=== PATIENT | male | born 1960 | race Caucasian/White ===

== ENCOUNTER 2018-02-10 08:25 | Observation (INO) | payer OTHER, SELFPAY ==
[2018-02-10 09:50] LABS: #Lymphocytes 0.7 thou/uL (1.20-3.40); #Monocytes 0.8 thou/uL (0.11-0.59); #Neutrophils 9.2 thou/uL (1.40-6.50); %Eosinophils 0.3 % (0.0-10.0); %Lymphocytes 6.2 % (21.0-51.0); %Monocytes 7.4 % (0.0-10.0); Hemoglobin 11.4 g/dL (14.0-18.0); Mean Corpuscular HGB CONC 32.2 g/dL (32.0-36.0); Mean Corpuscular Hemoglobin 27.5 pg (27.0-31.0); Mean Corpuscular Volume 85.4 fL (78.0-98.0); Mean Platelet Volume 7.3 fL (7.4-10.4); Platelet Count 326 thou/uL (130-400); Red Blood Cell (RBC) Count 4.13 mill/uL (4.70-6.10); White Blood Cell (WBC) Count 10.6 thou/uL (4.8-10.8)
[2018-02-10] MEDS ORDERED: Ketorolac Tromethamine 30 MG/ML VIAL ONE ×2 (09:50→16:03)
[2018-02-10] MEDS ORDERED: Morphine 4 MG/ML VIAL ONE ×2 (09:50→10:21)
[2018-02-10] MEDS ORDERED: Ondansetron PF 4 MG/2 ML Vial ONE ×2 (09:50→16:03)
--- NOTE | 2018-02-10 09:59 | CT ---
NONCONTRAST CT ABDOMEN AND PELVIS: Date: 02-10-18 History: Right flank pain. Comparison: 05-10-13 FINDINGS: There is mild atelectasis at the left lung base. Lung bases are otherwise clear. The spleen is mildly enlarged measuring 15 cm in craniocaudal dimensions. The liver, pancreas, bilateral adrenal glands, kidneys and incompletely distended urinary bladder dem onstrate a grossly normal nonenhanced CT appearance. No renal or ureteral calculi are seen bilaterall y. The appendix is dilated, measuring up to 10 mm and there is suggestion of minimal periappendiceal inf lammatory stranding. The appendix is also more dilated and prominent in appearance compared to a stud y in 2014. Findings are worrisome for early acute appendicitis. No free fluid, fluid collection or ly mphadenopathy is seen in the abdomen or pelvis. Degenerative changes are noted in the spine. There is stranding and subcutaneous edema in the gluteal regions bilaterally. IMPRESSION: 1. Fluid filled and dilated appendix. On coronal images there is minimal adjacent periappendiceal inf lammatory stranding. Findings are worrisome for early acute appendicitis. Clinical correlation is sug gested. 2. No renal or ureteral calculi are seen bilaterally. There is no hydronephrosis. 3. Colonic diverticulosis. 4. Above findings discussed with REENA Arteaga, in the Emergency Department on 02-10-18 at 0924 ho urs. POS: BORIS
[2018-02-10 10:02] LABS: ALT (SGPT) 18 U/L (8-55); AST (SGOT) 21 U/L (5-34); Albumin 3.8 g/dL (3.5-5.0); Alkaline Phosphatase 86 U/L (40-150); Anion Gap 15 mmol/L (10-20); BUN (Urea Nitrogen) 12 mg/dL (8.4-25.7); Bilirubin, Total 0.6 mg/dL (0.2-1.2); Calc. Creatinine Clearance 0 mL/min (70-130); Calcium 9.4 mg/dL (7.8-10.44); Carbon Dioxide 22 mmol/L (22-29); Chloride 96 mmol/L (98-107); Estimated GFR-MDRD 84; Globulin 3.9 g/dL (2.4-3.5); Glucose 142 mg/dL (70-105); Potassium 4.2 mmol/L (3.5-5.1); Protein, Total 7.7 g/dL (6.0-8.3); Sodium 129 mmol/L (136-145)
[2018-02-10] MEDS ORDERED: Piperacillin/Tazobactam 4.5 GM VIAL ONE (10:07)
[2018-02-10] MEDS ORDERED: Fentanyl 100 MCG/2 ML VIAL ONE ×3 (12:29→15:09)
[2018-02-10] MEDS ORDERED: Midazolam HCl 2 mg/2 ml Vial ONE (12:29)
[2018-02-10] MEDS ORDERED: Bupivacaine/Epinephrine 0.25% 30 ML VIAL ONE (12:42)
--- NOTE | 2018-02-10 12:59 | HP ---
HISTORY: Mrs. Gardner is a 57-year-old man with history of bipolar disorder. The patient presented to emergency room today complaining of worsening right lower quadrant to right flank abdominal pain which has been present over the last 4 days. Pain at maximum intensity is 9/10 today. He did have a movement of a slight improvement yesterday. He denies any fevers or chills. He denies any diarrhea. PAST MEDICAL HISTORY: Pertinent for multiple brain concussions, bipolar disorder. SURGICAL HISTORY: Pertinent for right ACL repair, multiple ear surgeries. SOCIAL HISTORY: He lives independently. He denies any cigarette smoking, ethanol or illicit drug abuse. He has elderly father at bedside; however, reports the patient used to drink heavily but has not done so over the last 4 to 5 years. PREHOSPITAL MEDICATIONS: Include Wellbutrin-SR 200 mg p.o. daily, risperidone 1 mg p.o. daily and lamotrigine 100 mg p.o. daily. FAMILY HISTORY: Notable for both parents with heart disease. His mother also had type 1 diabetes mellitus. His father has type 2 diabetes mellitus and essential hypertension. ALLERGIES: Patient denies any known drug allergies. REVIEW OF SYSTEMS: Ten-point review of systems essentially unremarkable except for as stated in past medical history and chief complaint. PHYSICAL EXAMINATION: GENERAL: This reveals a 57-year-old normally developed man who is otherwise coherent and interactive and appears stated age. The patient is alert and oriented x3. He appears to be in moderate acute distress secondary to severe right lower quadrant pain. The pain radiates to his right flank and right leg. VITAL SIGNS: Today includes blood pressure 122/69, pulse 79, respiratory rate is 18, temperature is 98.6 degrees Fahrenheit, oxygen saturation is 96% on room air. HEENT: Reveals normocephalic and atraumatic. Pupils equal, round, and reactive to light and accommodation. Extraocular muscles are intact bilaterally. He has no sclerae icterus present. HEART: Reveals regular rate and rhythm. No murmurs or gallops auscultated. LUNGS: Clear to auscultation bilaterally. Breathing regular and unlabored. ABDOMEN: Soft and nondistended. He has right lower quadrant tenderness to palpation. He has rebound tenderness present. He does have a positive Rovsing sign. EXTREMITIES: Reveal 2+ radial and pedal pulses bilaterally. No ankle edema is present. NEUROLOGIC: Reveals no focal deficits present. PERTINENT LABORATORY FINDINGS: Today includes a CBC with 10,600 white blood cells, hemoglobin and hematocrit are 11.4 and 35.3 respectively. Platelet count is 326,000. Metabolic Profile: Sodium 129, potassium is 4.2, chloride is 96, bicarbonate is 22, BUN 12, creatinine 0.93, glucose is 142. Lactic acid 1.0. AST and ALT are normal at 21 and 18 respectively. Alkaline phosphatase is 86. I personally reviewed the CT scan of the abdomen and pelvis which is remarkable for dilated appendix with periappendiceal fat stranding. No pneumoperitoneum or free fluid noted. IMPRESSION: 1. Acute appendicitis, likely retrocecal and perforated. 2. History of bipolar disorder. PLAN: Laparoscopic appendectomy. Above findings and plan discussed with the patient and his elderly father at bedside. I have advised the patient of the risks and benefits of the proposed surgery to include, but not limited to bleeding, infection, injury to bowel or surrounding structures. The patient indicates understanding of the information given. He has given consent for this admission and surgical intervention. VASHTI
[2018-02-10] MEDS ORDERED: Promethazine HCl 25 MG/ML VIAL IM PRN (14:17)
[2018-02-10] MEDS ORDERED: Dextrose 50% Abboject 50 ML SYRINGE SLOW IVP PRN (14:17)
[2018-02-10] MEDS ORDERED: hydrALAZINE 20 MG/ML VIAL SLOW IVP PRN (14:17)
[2018-02-10] MEDS ORDERED: Dextrose 5% in Water 1,000 ML IV PRN (14:17)
[2018-02-10] MEDS ORDERED: Ondansetron PF 4 MG/2 ML Vial IVP PRN (14:17)
[2018-02-10] MEDS ORDERED: traMADol HCl 50 MG TAB PO PRN ×2 (14:21)
[2018-02-10] MEDS ORDERED: Ketorolac Tromethamine 30 MG/ML VIAL IVP PRN (14:21)
[2018-02-10] MEDS ORDERED: Acetaminophen 500 MG TAB PO SCH (14:30)
--- NOTE | 2018-02-10 15:23 | OP ---
DATE OF OPERATION: 02/10/2018. PREOPERATIVE DIAGNOSIS: Acute appendicitis. POSTOPERATIVE DIAGNOSIS: Acute retrocecal appendicitis. SURGEON: Rubio Blanca D.O. ANESTHESIA: General endotracheal. ESTIMATED BLOOD LOSS: 5 mL FLUIDS GIVEN: 1000 mL crystalloids. SPONGE AND INSTRUMENT COUNT: Certified as correct x2. COMPLICATIONS: None apparent at the time of operation. INDICATIONS FOR PROCEDURE: This is a 57-year-old man who presented with a 3-day history of abdominal pain. Clinical radiographic examination was consistent with acute appendicitis for which patient wa s brought to the operating room for appendectomy. Findings are consistent with acute suppurative, bu t nonperforated retrocecal appendix. DESCRIPTION OF PROCEDURE: Informed consent obtained from the patient who was brought to the operatin g room and placed in supine position. Following general anesthesia, a Sunshine catheter was inserted an d placed bedside drain. Abdomen is sterilely prepped and draped in usual fashion. The skin below th e umbilicus was infiltrated with 0.25% Marcaine with epinephrine. A small curvilinear infraumbilical incision is made using an 11 scalpel. Umbilical stalk grasped with Anselmo's and elevated. Veress n eedle was inserted through the incision and placed in the peritoneal cavity through which the abdomen was insufflated with 3.5 liters of CO2 gas. Intraabdominal pressure was noted at 1 mmHg. Following abdominal insufflation, Veress needle was removed and a 5 mm trocar inserted using a Visiport under laparoscopy. Laparoscopy confirmed proper placement of the port, no injuries to underlying structure s. Additional laparoscopy reveals right lower quadrant partially encased by omental adhesions. Unde r laparoscopy, a 5 mm suprapubic and a 12 mm left lower quadrant ports were placed after the overlyin g skin was infiltrated with 0.25% Marcaine with epinephrine and appropriate incision was made. The p atient was placed in a Trendelenburg position, rotated to his left. I introduced a Prestige grasper through the left lower quadrant port site using this to take down omental adhesions to reveal the cec um and distal ileum which welded to the right lateral gutter. I then used [place] dissector with ca utery to take down fibrotic tissues. Care was taken to avoid injuries to surrounding bowel. The dis juan ileum was run from the ileocecal junction to proximal 2 feet, no Meckel's diverticulum noted. Ad ditional exploration reveals a dilated, but nonperforated retrocecal appendix, which was quite inflam ed. [place] dissector was used to grasp the appendix, which was elevated. I created a rent through the mesoappendix using a [place] dissector. Through this rent, Endo-JAMEY with a blue load was intro duced dividing the appendix at appendicocecal junction. Using a white load of the Endo-JAMEY, the meso appendix was also divided with good hemostasis. Appendix itself was delivered of the abdominal cavit y using an EndoCatch. Operative site was inspected for good hemostasis. There was minor oozing over the staple line. A 1 x 2 inch piece of fibula was applied over this achieving immediate hemostasis. Finding no other pathology, laparoscopy was terminated. Fascia of the left lower quadrant port was closed using 0 Vicryl suture and Endo closure device under laparoscopy. Abdomen was desufflated. R emainder of the ports and instruments removed and accounted for. Skin incisions were closed using 4- 0 Monocryl suture in subcuticular fashion. Dermabond was applied over the incision for closure. The patient tolerated the operation without any apparent complication and was returned to the recovery r oom in satisfactory condition.
[2018-02-10] MEDS ORDERED: Dexamethasone 20 MG/5 ML VIAL ONE (16:03)
[2018-02-10] MEDS ORDERED: Succinylcholine Chloride 20 MG/ML 10 ml SYRINGE FS ONE (16:03)
[2018-02-10] MEDS ORDERED: Lidocaine 1% PF 5 ML VIAL ONE (16:03)
[2018-02-10] MEDS ORDERED: Glycopyrrolate 0.2 MG/ML 5 ML SYRINGE ONE (16:03)
[2018-02-10] MEDS ORDERED: PROPOFOL 200 MG/20 ML VIAL ONE (16:03)
[2018-02-10 17:02] VITALS: BMI 45.3
[2018-02-10] MEDS: Piperacillin/Tazobactam 3.375 GM in Sodium Chloride 0.9% 100 ML IVPB SCH ×2 (17:37→23:41)
[2018-02-10] MEDS: Acetaminophen 500 MG TAB PO SCH ×2 (17:39→23:40)
[2018-02-10] MEDS: Lactated Ringer's 1,000 ML IV SCH (17:39)
[2018-02-10] MEDS: Famotidine 20 MG TAB PO SCH (21:02)
[2018-02-10] MEDS: Famotidine/PF 20 mg/2ml Vial SLOW IVP SCH (21:03)
[2018-02-11] MEDS: Lactated Ringer's 1,000 ML IV SCH ×2 (01:40→11:20)
[2018-02-11 05:05] LABS: #Lymphocytes 0.8 thou/uL (1.20-3.40); #Monocytes 0.6 thou/uL (0.11-0.59); #Neutrophils 8.4 thou/uL (1.40-6.50); %Basophils 0.1 % (0.0-1.0); %Eosinophils 0.2 % (0.0-10.0); %Lymphocytes 7.7 % (21.0-51.0); %Monocytes 6.5 % (0.0-10.0); %Neutrophils 85.6 % (42.0-75.0); Hemoglobin 10.7 g/dL (14.0-18.0); Mean Corpuscular HGB CONC 31.8 g/dL (32.0-36.0); Mean Corpuscular Hemoglobin 27.8 pg (27.0-31.0); Mean Corpuscular Volume 87.5 fL (78.0-98.0); Mean Platelet Volume 7.5 fL (7.4-10.4); Platelet Count 327 thou/uL (130-400); RBC Distribution Width 14.9 % (11.5-14.5); Red Blood Cell (RBC) Count 3.85 mill/uL (4.70-6.10); White Blood Cell (WBC) Count 9.8 thou/uL (4.8-10.8)
[2018-02-11] MEDS: Acetaminophen 500 MG TAB PO SCH ×2 (05:28→11:19)
[2018-02-11] MEDS: Piperacillin/Tazobactam 3.375 GM in Sodium Chloride 0.9% 100 ML IVPB SCH (05:29)
[2018-02-11] MEDS: Famotidine 20 MG TAB PO SCH (08:11)
[2018-02-11] MEDS: Famotidine/PF 20 mg/2ml Vial SLOW IVP SCH (08:11)
[2018-02-11] MEDS ORDERED: risperiDONE 1 MG TAB PO SCH (09:00)
[2018-02-11] MEDS ORDERED: Bupropion 150 MG SR TAB PO SCH (09:00)
[2018-02-11] MEDS ORDERED: lamoTRIgine 100 MG TAB PO SCH (09:00)
--- NOTE | 2018-02-11 13:27 | DIS ---
DATE OF ADMISSION: 02/10/2018 DATE OF DISCHARGE: 02/11/2018 ADMITTING AND DISCHARGING PHYSICIAN: Dr. Rubio lBanca ADMITTING DIAGNOSIS: Acute appendicitis. DISCHARGE DIAGNOSIS: Acute appendicitis. OPERATIONS PERFORMED: Laparoscopic appendectomy on 02/10/2018. Please see separate dictation for operative report. HISTORY AND HOSPITAL COURSE: A 57-year-old man presented with several days of abdominal pain. Clini genaro and radiographic examination was consistent with acute appendicitis for which patient was brought to the operating room for laparoscopic appendectomy. Following surgery the patient was admitted to general floor where he remained at time of discharge. Postop day #1, he is ambulating with minimum d ifficulty. His pain is adequately controlled on oral analgesics. The patient is tolerating general diet. He is having normal bowel and urinary function. He has remained hemodynamically stable and af ebrile through this hospitalization. The patient will be discharged home today. LABORATORY STUDIES: Today includes a CBC with 9800 white blood cells, hemoglobin and hematocrit 10.7 and 33.7 respectively and stable. Platelet count is 327,000. IMPRESSION: Postoperative day #1 status post laparoscopic appendectomy. DISCHARGE INSTRUCTIONS: The following instructions to include: 1. Follow up with me in the Surgery Clinic in 2 weeks. 2. The patient is encouraged to ambulate daily to avoid complications of venous thromboembolism. 3. He is to call me with any questions or problems including exacerbation of abdominal pain, intoler ance to oral intake, fever in excess of 101 degrees Fahrenheit, or any abnormal drainage from the inc isions. 4. He may shower effective tomorrow. He is to avoid soaking himself in the bathtub or swimming unti l he has been released by me. He is to avoid weightlifting in excess of 20 pounds. 5. He is to resume all his prehospital medication as prescribed by his primary care physician. Matt tionally, he is given a prescription for tramadol 50 mg #30 to be taken 1-2 p.o. q.6 hours p.r.n. osiel n. As part of his workup, blood cultures were positive for MRSA. Therefore, patient was placed on vanco mycin while in the hospital. He has been discharged home today with additional prescription for Bact rim-DS #14 to be taken 1 p.o. b.i.d. until all taken. The above instructions given to the patient, who indicates understanding of information given. I ans wered his questions. The patient has expressed gratitude for the care rendered to him during this ho spitalization and surgery.
[2018-02-11 13:47] VITALS: BP 123/67; TEMP 97.8
[2018-02-11] MEDS ORDERED: Sulfameth/Trimethoprim DS 800-160mg TAB PO SCH (21:00)
== END 2018-02-11 14:11 | disposition home or self-care (01) ==
LOC: ERS 08:25 → SDC 12:29 → INTOOBSV 16:42 → T4-B 16:42
PROVIDERS: ADMIT Surgery; ATTEND Surgery
PROC: 0DTJ4ZZ Resection of Appendix, Percutaneous Endoscopic Approach (ICD-10-PCS; principal; 2018-02-10)
DX: K35.80 Unspecified acute appendicitis (principal); F31.9 Bipolar disorder, unspecified; Z79.899 Other long term (current) drug therapy
CPT/HCPCS: 36415; 74176; 80053; 83605; 85025; 87040; 87077; 87149; 87186; 88304; 96361; 96365; 96366; 96367; 96374; 96375; 96376; G0378; J1100; J1885; J2001; J2250; J2270; J2405; J2543; J2704; J3010; J3370; J7050; S0028

== ENCOUNTER 2018-04-15 13:00 | Outpatient (CLI) | payer OTHER ==
[2018-04-15] MEDS ORDERED: Gadobenate Dimeglumine 529 MG/1 ML (20ML VIAL) ONE (13:25)
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
== END 2018-04-15 13:01 | disposition home or self-care (01) ==
LOC: TBSIIMAG 13:00
PROVIDERS: ATTEND Neurological Surgery
DX: S06.890A Other specified intracranial injury without loss of consciousness, initial encounter (principal)
CPT/HCPCS: 70553; A9579